=== PATIENT | male | born 1935 | race Caucasian/White ===

== ENCOUNTER → 2016-08-05 | Outpatient (CLI) | payer MEDICARE, BC ==
[~2016-08-05] MED LIST: ALBU3SOL7; AMLO1CAP18 PO; ARFO15VI2; BUDE1AMP; FURO-33 PO; GLYB-66 PO; IOHEXOL 300 MG/ML 75ml INJECTION ONE; METO-64 PO; NORMAL SALINE 100 ML ONE; SALINE FLUSH 10ml SYRINGE ONE; SIMV20TA80 PO; SPIR100T24 PO; [UNRECOGNIZED DRUG - CODE] PO
--- NOTE | 2016-08-05 11:52 | DI ---
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 Coronal and sagittal two-dimensional reformats. Automated Exposure Control and Iterative Reconstruction dose reducing techniques were utilized. Contrast: Omnipaque 300 75 mL Findings: Paraseptal emphysema. Mild right-sided stable pleural thickening. No new right-sided pulmonary nodules or masses. No solid there is pneumonia, pleural effusion or pneumothorax. Is a region of groundglass opacity in superior segment left lower lobe which is more prominent on today's exam this region extends for approximately 3 cm in the transverse dimension and 1.4 cm craniocaudally best seen on coronal image #58. No additional new pulmonary nodules or masses. No axillary or mediastinal adenopathy. Low-attenuation right thyroid nodule is unchanged. Heart size is stable. Coronary artery calcifications. No pericardial effusion. The upper abdomen shows layering stones or stone debris in the gallbladder but no acute findings. Impression: Increasing area of groundglass opacity in the left lower lobe of uncertain etiology. This could be due to infection, inflammation or scarring from prior therapy. This does not have a typical appearance for tumor. Recommend correlation with patient's treatment history. .
== END ==
LOC: IMA 10:20
PROVIDERS: ATTEND Internal Medicine Hematology & Oncology
DX: C34.32 Malignant neoplasm of lower lobe, left bronchus or lung (principal); R91.8 Other nonspecific abnormal finding of lung field
CPT/HCPCS: 71260; J7050; Q9967